=== PATIENT | female | born 1990 | race Caucasian/White ===

== ENCOUNTER 2017-10-06 07:41 | Inpatient (IN) | payer OTHER ==
[~2017-10-06] VITALS: Ht 170.2 cm; Wt 125.0 kg
[~2017-10-06 07:41] MED LIST: ALBIPROI INH; AMOX50SU PO; CEFA500ER PO; CETI10 PO; CODACE30 PO; CODGUAEL PO; CRUTCH4 USE; Carafate1 GM/10 ML PO; HYDACE5 PO; PHENA200 PO; Percocet 5-3251 EACH PO; Protonix40 MG PO; RXCODACET PO; RXHYDACE PO; RXPHEN200 PO; SPACER IH; SULTRIDS PO; TRAM50 PO; Valium5 MG PO; Zofran Odt4 MG SL
[2017-10-06] MEDS ORDERED: NITR100CA PO (08:19)
[2017-10-06] MEDS ORDERED: PRENATAL 19 TA1 EACH PO (08:19)
[2017-10-06] MEDS ORDERED: TUMS200 MG (08:19)
[2017-10-06 09:00] LABS: BASOPHILS ABSOLUTE AUTO 0.02 K/mm3 (0.00-0.23); BASOPHILS PERCENT AUTO 0 % (0-2); EOSINOPHILS ABSOLUTE AUTO 0.22 K/mm3 (0.00-0.68); EOSINOPHILS PERCENT AUTO 2 % (0-6); Hematocrit 37.9 % (33.0-51.0); IMMATURE GRAN ABSOLUTE AUTO 0.07 K/mm3 (0.00-0.10); IMMATURE GRAN PERCENT AUTO 1 % (0-1); LYMPHOCYTES ABSOLUTE AUTO 1.67 K/mm3 (0.84-5.20); LYMPHOCYTES PERCENT AUTO 16 % (21-46); MONOCYTES ABSOLUTE AUTO 0.63 K/mm3 (0.16-1.47); MONOCYTES PERCENT AUTO 6 % (4-13); Mean Corpuscular HGB 31.4 pg (26.0-34.0); Mean Corpuscular HGB Conc 34.3 g/dL (31.5-36.5); Mean Corpuscular Volume 92 fL (80-100); Mean Platelet Volume 11.9 fL (9.1-12.4); NEUTROPHILS ABSOLUTE AUTO 7.89 K/mm3 (1.96-9.15); NEUTROPHILS PERCENT AUTO 75 % (41-73); Platelet Count 137 K/mm3 (150-400); RDW Standard Deviation 46.7 fL (35.1-46.3); Red Blood Cell Count 4.14 M/mm3 (3.80-5.20)
[2017-10-06] MEDS ORDERED: ALBU90OI6 INH (09:19)
[2017-10-06 09:21] LABS: Alanine Aminotransfer (ALT/SGP 20 U/L (12-78); Albumin, Blood 2.6 g/dL (3.4-5.0); Albumin/Globulin Ratio 0.7 (0.8-1.8); Alk Phos 93 U/L (50-136); Anion Gap 12 mmol/L (6-16); Aspartate Aminotrans (AST/SGOT 12 U/L (12-37); Bilirubin, Total 0.2 mg/dL (0.1-1.0); Blood Urea Nitrogen 4 mg/dL (8-24); Bun/Creatinine Ratio 9.4 (12.0-20.0); CO2, Blood 21 mmol/L (21-32); Calcium, Blood 9.6 mg/dL (8.5-10.1); Chloride, Blood 108 mmol/L (98-108); Creatinine, Blood 0.43 mg/dL (0.40-1.00); Globulin, Blood 3.9 g/dL (2.2-4.0); Glomerular Filtration Rate >60 (60-); Glucose, Blood 90 mg/dL (70-99); Potassium, Blood 3.4 mmol/L (3.5-5.5); Sodium, Blood 141 mmol/L (136-145); Total Protein, Blood 6.5 g/dL (6.4-8.2)
[2017-10-08 06:12] LABS: BASOPHILS ABSOLUTE AUTO 0.02 K/mm3 (0.00-0.23); BASOPHILS PERCENT AUTO 0 % (0-2); EOSINOPHILS ABSOLUTE AUTO 0.15 K/mm3 (0.00-0.68); EOSINOPHILS PERCENT AUTO 1 % (0-6); Hematocrit 38.6 % (33.0-51.0); Hemoglobin 13.3 g/dL (11.5-16.0); IMMATURE GRAN ABSOLUTE AUTO 0.05 K/mm3 (0.00-0.10); IMMATURE GRAN PERCENT AUTO 0 % (0-1); LYMPHOCYTES ABSOLUTE AUTO 1.53 K/mm3 (0.84-5.20); LYMPHOCYTES PERCENT AUTO 13 % (21-46); MONOCYTES ABSOLUTE AUTO 0.62 K/mm3 (0.16-1.47); MONOCYTES PERCENT AUTO 5 % (4-13); Mean Corpuscular HGB Conc 34.5 g/dL (31.5-36.5); Mean Corpuscular Volume 93 fL (80-100); Mean Platelet Volume 11.6 fL (9.1-12.4); NEUTROPHILS ABSOLUTE AUTO 9.04 K/mm3 (1.96-9.15); NEUTROPHILS PERCENT AUTO 79 % (41-73); Platelet Count 123 K/mm3 (150-400); RDW Coefficient Variation 13.7 % (11.7-14.2); RDW Standard Deviation 46.5 fL (35.1-46.3); Red Blood Cell Count 4.16 M/mm3 (3.80-5.20); White Blood Cell Count 11.41 K/mm3 (4.00-11.30)
[2017-10-08 20:15] LABS: PCO2 Cord - Arterial 51.7 mmHg (40-50); PO2 Cord - Arterial 12.7 mmHg (16-20); pH Cord - Arterial 7.35 (7.28-7.35)
[2017-10-08 20:17] LABS: PCO2 Cord - Venous 46.7 mmHg (40-50); PO2 Cord - Venous 20.6 mmHg (28-32); pH Umbilical Cord - Venous 7.37 (7.26-7.35)
[2017-10-08 23:03] LABS: Mean Platelet Volume 11.6 fL (9.1-12.4); Platelet Count 122 K/mm3 (150-400)
[2017-10-09 06:08] LABS: Hematocrit 33.9 % (33.0-51.0); Hemoglobin 11.8 g/dL (11.5-16.0); Mean Corpuscular HGB 32.1 pg (26.0-34.0); Mean Corpuscular HGB Conc 34.8 g/dL (31.5-36.5); Mean Corpuscular Volume 92 fL (80-100); Mean Platelet Volume 11.6 fL (9.1-12.4); Platelet Count 131 K/mm3 (150-400); RDW Coefficient Variation 13.8 % (11.7-14.2); Red Blood Cell Count 3.68 M/mm3 (3.80-5.20); White Blood Cell Count 14.66 K/mm3 (4.00-11.30)
[2017-10-10] MEDS ORDERED: Percocet 5-3251 EACH PO (07:52)
[2017-10-10] MEDS ORDERED: IBUP800 PO (07:52)
== END 2017-10-10 13:45 | disposition home or self-care (01) | DRG 765 ==
LOC: BC 07:41
PROVIDERS: Nurse Practitioner Obstetrics & Gynecology; Obstetrics & Gynecology
PROC: 10D00Z1 Extraction of Products of Conception, Low, Open Approach (ICD-10-PCS; principal; 2017-10-08 19:30)
PROC: 3E0234Z Introduction of Serum, Toxoid and Vaccine into Muscle, Percutaneous Approach (ICD-10-PCS; 2017-10-10)
DX: O14.04 Mild to moderate pre-eclampsia, complicating childbirth (principal); Z68.41 Body mass index [BMI] 40.0-44.9, adult; Z37.0 Single live birth; Z3A.37 37 weeks gestation of pregnancy; O99.214 Obesity complicating childbirth; E66.01 Morbid (severe) obesity due to excess calories; J45.909 Unspecified asthma, uncomplicated; O99.52 Diseases of the respiratory system complicating childbirth; O99.62 Diseases of the digestive system complicating childbirth; K21.9 Gastro-esophageal reflux disease without esophagitis; Z23 Encounter for immunization; O32.4XX0 Maternal care for high head at term, not applicable or unspecified; O62.0 Primary inadequate contractions; O32.3XX0 Maternal care for face, brow and chin presentation, not applicable or unspecified; O69.2XX0 Labor and delivery complicated by other cord entanglement, with compression, not applicable or unspecified
CPT/HCPCS: 36415; 51702; 80053; 82803; 85025; 85027; 85049; 86850; 86900; 86901; 90707; J1100; J1885; J2210; J2270; J2370; J2405; J2590; J2765; J3010; J7120

== ENCOUNTER → 2017-10-19 | Outpatient (CLI) | END | disposition home or self-care (01) ==

== ENCOUNTER 2019-05-24 20:26 | Emergency (ER) | payer OTHER ==
[~2019-05-24] VITALS: Ht 170.2 cm; Wt 120.2 kg
[~2019-05-24 20:26] MED LIST changes: +ALBU90OI6 INH; +IBUP800 PO; +NITR100CA PO; +PRENATAL 19 TA1 EACH PO; +TUMS200 MG
[2019-05-24] MEDS ORDERED: Cleocin HCl300 MG PO (20:49)
== END 2019-05-24 20:55 | disposition home or self-care (01) ==
LOC: ER 20:26
DX: K04.01 Reversible pulpitis (principal); Z87.891 Personal history of nicotine dependence
CPT/HCPCS: 99282

== ENCOUNTER → 2020-10-09 | Outpatient (CLI) | payer OTHER ==
[~2020-10-09] MED LIST changes: +Cleocin HCl300 MG PO
[2020-10-11 16:09] LABS: HPV 16 Negative (Negative); HPV 18 Negative (Negative); HPV OTHER HR TYPES Negative (Negative)
== END | disposition home or self-care (01) ==
LOC: LAB 17:20 → LAB SHORT 17:20
PROVIDERS: Obstetrics & Gynecology
DX: Z01.419 Encounter for gynecological examination (general) (routine) without abnormal findings (principal)
CPT/HCPCS: 87624; G0123

== ENCOUNTER → 2021-04-08 | Outpatient (CLI) | payer OTHER | END | disposition home or self-care (01) | LOC: LAB SHORT 15:46 | DX: O09.93 Supervision of high risk pregnancy, unspecified, third trimester (principal) | CPT/HCPCS: 87081; 87150 ==

== ENCOUNTER 2021-04-22 05:43 | Inpatient (IN) | payer OTHER ==
[~2021-04-22] VITALS: Ht 170.2 cm; Wt 135.0 kg
[2021-04-22 06:14] LABS: BASOPHILS ABSOLUTE AUTO 0.02 K/mm3 (0.00-0.23); BASOPHILS PERCENT AUTO 0 % (0-2); EOSINOPHILS ABSOLUTE AUTO 0.12 K/mm3 (0.00-0.68); EOSINOPHILS PERCENT AUTO 1 % (0-6); Hematocrit 38.9 % (33.0-51.0); Hemoglobin 13.1 g/dL (11.5-16.0); IMMATURE GRAN ABSOLUTE AUTO 0.04 K/mm3 (0.00-0.10); IMMATURE GRAN PERCENT AUTO 0 % (0-1); LYMPHOCYTES ABSOLUTE AUTO 1.64 K/mm3 (0.84-5.20); LYMPHOCYTES PERCENT AUTO 18 % (21-46); MONOCYTES PERCENT AUTO 7 % (4-13); Mean Corpuscular HGB Conc 33.7 g/dL (31.5-36.5); Mean Corpuscular Volume 92 fL (80-100); NEUTROPHILS ABSOLUTE AUTO 6.88 K/mm3 (1.96-9.15); NEUTROPHILS PERCENT AUTO 74 % (41-73); Platelet Count 148 K/mm3 (150-400); RDW Coefficient Variation 14.3 % (11.7-14.2); RDW Standard Deviation 47.4 fL (35.1-46.3); Red Blood Cell Count 4.23 M/mm3 (3.80-5.20)
--- NOTE | 2021-04-22 08:31 | NUR ---
04/22/21 0831 Marycruz Hoffman VIABLE MALE BORN AT 0809. WT [id number], 8LB 4 OZ; LENGTH 20IN; HEAD 14IN; CHEST 13.5 IN; APGARS 9/10; CORD BLOOD SENT W/ A. LUIS ARMANDO BULLOCK
--- NOTE | 2021-04-22 14:37 | NUR ---
PATIENT REPORTS SHE IS HAVING SIGNIFICANT INCISIONAL PAIN. SHE REPORTS THAT IT IS CONSTANT AND SOMEWHAT RELIEVED WITH PAIN MEDICATION. WE TRIED REPOSITIONING HER WITH NO RELIEF. RAJAN AND TORADOL GIVEN.
--- NOTE | 2021-04-22 15:23 | NUR ---
PATIENT REPORTS HER PAIN IS 5/10. SHE WAS GIVEN A HEATING PAD FOR HER INCISIONAL SITE.
--- NOTE | 2021-04-22 16:41 | NUR ---
PATIENT GIVEN MORPHINE FOR BREAKTHROUGH PAIN. SHE REPORTS HER PAIN IS 5/10 NOW. SHE WAS READJUSTED IN BED AND HER BINDER WAS FIXED TO BE AT THE APPROPRIATE LEVEL. THE PATIENT BROUGHT LAVENDER AND EUCALYPTUS ESSENTIAL OILS AND A DIFFUSER. SHE REPORTS THAT THIS HELPS HER AT HOME. HER IS SETTING THAT UP.
[2021-04-23 06:06] LABS: BASOPHILS ABSOLUTE AUTO 0.02 K/mm3 (0.00-0.23); BASOPHILS PERCENT AUTO 0 % (0-2); EOSINOPHILS ABSOLUTE AUTO 0.15 K/mm3 (0.00-0.68); EOSINOPHILS PERCENT AUTO 2 % (0-6); Hematocrit 33.7 % (33.0-51.0); Hemoglobin 11.1 g/dL (11.5-16.0); IMMATURE GRAN ABSOLUTE AUTO 0.05 K/mm3 (0.00-0.10); IMMATURE GRAN PERCENT AUTO 1 % (0-1); LYMPHOCYTES ABSOLUTE AUTO 1.61 K/mm3 (0.84-5.20); LYMPHOCYTES PERCENT AUTO 19 % (21-46); MONOCYTES ABSOLUTE AUTO 0.49 K/mm3 (0.16-1.47); MONOCYTES PERCENT AUTO 6 % (4-13); Mean Corpuscular HGB 30.7 pg (26.0-34.0); Mean Corpuscular HGB Conc 32.9 g/dL (31.5-36.5); Mean Corpuscular Volume 93 fL (80-100); Mean Platelet Volume 11.3 fL (9.1-12.4); NEUTROPHILS PERCENT AUTO 73 % (41-73); Platelet Count 106 K/mm3 (150-400); RDW Coefficient Variation 14.6 % (11.7-14.2); RDW Standard Deviation 49.3 fL (35.1-46.3); Red Blood Cell Count 3.61 M/mm3 (3.80-5.20); White Blood Cell Count 8.72 K/mm3 (4.00-11.30)
[2021-04-24] MEDS ORDERED: OXAYDO5 M1 PO (12:37)
[2021-04-24] MEDS ORDERED: IBUP800 PO (12:37)
--- NOTE | 2021-04-24 15:30 | NUR ---
PATIENT GOT UP TO SHOWER WITH ASSISTANCE FROM HER SO. SHE ALSO APPLIED MAKEUP AND AMBULATED DOWN TWO HALLWAYS AND BACK WITH HER SO. SHE IS REQUESTING TO GO HOME AND REPORTS THAT THE PAIN AT HER INCISION FEELS LIKE IT IS GETTING BETTER. HER LEFT TO GET HER PRESCRIPTIONS FILLED AT THEIR PHARMACY SO THAT THEY WILL HAVE THEM WHEN SHE GOES HOME.
--- NOTE | 2021-04-24 16:53 | NUR ---
PATIENT IS ACTIVELY PACKING HER BELONGINGS WITHOUT ASSISTANCE AND GETTING READY TO GO HOME. SHE REPORTS THAT THE PAIN IS SOMEWHAT BETTER AND THAT SHE IS READY TO TAKE HER HOME TO HER DAUGHTER.
--- NOTE | 2021-04-24 18:09 | NUR ---
PT RECEIVED ONE MORE DOSE OF RAJAN PRIOR TO D/C. SHE REPORTS THAT HER PAIN IS SOMEWHAT BETTER BUT THEY HAVE A 30-[address] HOME. PT WAS GIVEN D/C INSTRUCTIONS AND SHE VOICED UNDERSTANDING. SHE WAS GIVEN PRESCRIPTIONS, WHICH HER DROPPED OFF AT THE PHARMACY SO THEY CAN FIELD MECHANIC ON THE WAY HOME. PT WILL RTC ON THURSDAY FOR PP F/U. SHE WAS ENCOURAGED TO CALL DR. TOPETE IF HER PAIN IS POORLY CONTROLLED AT HOME. WE DISCUSSED ALTERNATING TYLENOL AND IBUPROFEN AT HOME PRIOR TO TAKING RAJAN, TO USE IT MORE A LAST RESORT. LUIS ARMANDO CURRAN HAD A DISCUSSION WITH BOTH THE PT AND HER SO IN REGARD TO SPACING OUT RAJAN WHEN SHE GETS HOME. THE PT REPORTS SHE FEELS A LOT MORE COMFORTABLE WITH GOING HOME. SHE WAS D/C HOME WITH HER SO AND .
== END 2021-04-24 18:55 | disposition home or self-care (01) | DRG 788 ==
LOC: BC 05:43
PROVIDERS: ADMIT Obstetrics & Gynecology
PROC: 10D00Z1 Extraction of Products of Conception, Low, Open Approach (ICD-10-PCS; principal; 2021-04-22 07:30)
DX: O34.211 Maternal care for low transverse scar from previous cesarean delivery (principal); Z37.0 Single live birth; Z3A.39 39 weeks gestation of pregnancy; O99.214 Obesity complicating childbirth; E66.01 Morbid (severe) obesity due to excess calories
CPT/HCPCS: 36415; 85025; 86850; 86900; 86901; A9270; J0690; J1885; J2270; J2370; J2405; J2590; J2704; J2765; J3010; J7120

== ENCOUNTER → 2021-06-21 | Outpatient (CLI) | payer OTHER ==
[~2021-06-21] MED LIST changes: +OXAYDO5 M1 PO
[2021-06-21 10:31] LABS: BASOPHILS ABSOLUTE AUTO 0.03 K/mm3 (0.00-0.23); BASOPHILS PERCENT AUTO 0 % (0-2); EOSINOPHILS ABSOLUTE AUTO 0.19 K/mm3 (0.00-0.68); EOSINOPHILS PERCENT AUTO 3 % (0-6); Hematocrit 41.4 % (33.0-51.0); Hemoglobin 13.9 g/dL (11.5-16.0); IMMATURE GRAN ABSOLUTE AUTO 0.03 K/mm3 (0.00-0.10); IMMATURE GRAN PERCENT AUTO 0 % (0-1); LYMPHOCYTES ABSOLUTE AUTO 1.74 K/mm3 (0.84-5.20); LYMPHOCYTES PERCENT AUTO 23 % (21-46); MONOCYTES ABSOLUTE AUTO 0.42 K/mm3 (0.16-1.47); MONOCYTES PERCENT AUTO 6 % (4-13); Mean Corpuscular HGB 29.9 pg (26.0-34.0); Mean Corpuscular HGB Conc 33.6 g/dL (31.5-36.5); Mean Corpuscular Volume 89 fL (80-100); Mean Platelet Volume 10.8 fL (9.1-12.4); NEUTROPHILS ABSOLUTE AUTO 5.03 K/mm3 (1.96-9.15); NEUTROPHILS PERCENT AUTO 68 % (41-73); Platelet Count 201 K/mm3 (150-400); RDW Coefficient Variation 13.4 % (11.7-14.2); RDW Standard Deviation 43.6 fL (35.1-46.3); Red Blood Cell Count 4.65 M/mm3 (3.80-5.20); White Blood Cell Count 7.44 K/mm3 (4.00-11.30)
[2021-06-21 10:48] LABS: Alanine Aminotransfer (ALT/SGP 136 U/L (12-78); Albumin, Blood 3.8 g/dL (3.4-5.0); Albumin/Globulin Ratio 1.1 (0.8-1.8); Alk Phos 58 U/L (40-126); Anion Gap 10 mmol/L (6-16); Aspartate Aminotrans (AST/SGOT 45 U/L (12-37); Bilirubin, Total 0.5 mg/dL (0.1-1.0); Blood Urea Nitrogen 15 mg/dL (8-24); Bun/Creatinine Ratio 20.5 (12.0-20.0); CO2, Blood 25 mmol/L (21-32); Calcium, Blood 9.3 mg/dL (8.5-10.1); Chloride, Blood 103 mmol/L (98-108); Creatinine, Blood 0.73 mg/dL (0.40-1.00); Globulin, Blood 3.6 g/dL (2.2-4.0); Glomerular Filtration Rate >60 (60-); Glucose, Blood 104 mg/dL (70-99); Potassium, Blood 3.8 mmol/L (3.5-5.5); Sodium, Blood 138 mmol/L (136-145); Thyroid Stimulating Hormone 1.623 uIU/mL (0.360-4.800); Total Protein, Blood 7.4 g/dL (6.4-8.2); Troponin I <0.017 ng/mL (0.000-0.040)
== END ==
LOC: LAB SHORT 10:25 → LAB 10:25
PROVIDERS: Physician Assistant
DX: R07.9 Chest pain, unspecified (principal); R53.83 Other fatigue
CPT/HCPCS: 80053; 83690; 84443; 84484; 85025; 85379

== ENCOUNTER 2022-08-04 02:57 | Observation (INO) | payer BC, OTHER ==
[~2022-08-04] VITALS: Ht 167.6 cm; Wt 124.7 kg
[2022-08-04 03:48] LABS: Source, Urine Clean Catch
[2022-08-04 03:51] LABS: Bilirubin, Urine Neg (Neg); Blood, Urine Neg (Neg); Glucose Qualitative, Urine Neg (Neg); Ketones, Urine Neg (Neg); Leukocyte Esterase, Urine Neg (Neg); Nitrite, Urine Neg (Neg); Protein, Urine Neg (Neg); Specific Gravity, Urine 1.025 (1.003-1.022); Urobilinogen, Urine NORM (Normal)
[2022-08-04 03:53] LABS: BASOPHILS ABSOLUTE AUTO 0.03 K/mm3 (0.00-0.23); BASOPHILS PERCENT AUTO 0 % (0-2); EOSINOPHILS ABSOLUTE AUTO 0.13 K/mm3 (0.00-0.68); EOSINOPHILS PERCENT AUTO 1 % (0-6); Hematocrit 42.3 % (33.0-51.0); Hemoglobin 14.4 g/dL (11.5-16.0); IMMATURE GRAN ABSOLUTE AUTO 0.04 K/mm3 (0.00-0.10); IMMATURE GRAN PERCENT AUTO 0 % (0-1); LYMPHOCYTES ABSOLUTE AUTO 1.79 K/mm3 (0.84-5.20); LYMPHOCYTES PERCENT AUTO 17 % (21-46); MONOCYTES ABSOLUTE AUTO 0.57 K/mm3 (0.16-1.47); MONOCYTES PERCENT AUTO 5 % (4-13); Mean Corpuscular HGB 30.1 pg (26.0-34.0); Mean Corpuscular Volume 88 fL (80-100); NEUTROPHILS ABSOLUTE AUTO 8.29 K/mm3 (1.96-9.15); NEUTROPHILS PERCENT AUTO 76 % (41-73); Platelet Count 226 K/mm3 (150-400); RDW Coefficient Variation 12.4 % (11.7-14.2); RDW Standard Deviation 40.3 fL (35.1-46.3); Red Blood Cell Count 4.79 M/mm3 (3.80-5.20); White Blood Cell Count 10.85 K/mm3 (4.00-11.30)
[2022-08-04 04:02] LABS: Appearance, Urine Clear (Clear); Color, Urine Yellow (P-Yellow)
[2022-08-04 04:12] LABS: Alanine Aminotransfer (ALT/SGP 22 U/L (12-78); Albumin, Blood 3.7 g/dL (3.4-5.0); Alk Phos 56 U/L (50-136); Anion Gap 5 mmol/L (6-16); Aspartate Aminotrans (AST/SGOT 13 U/L (12-37); Bilirubin, Direct <0.1 mg/dL (0.0-0.3); Bilirubin, Total 0.2 mg/dL (0.1-1.0); Blood Urea Nitrogen 11 mg/dL (8-24); Bun/Creatinine Ratio 19.2 (12.0-20.0); CO2, Blood 26 mmol/L (21-32); Calcium, Blood 8.8 mg/dL (8.5-10.1); Chloride, Blood 106 mmol/L (98-108); Creatinine, Blood 0.57 mg/dL (0.40-1.00); Globulin, Blood 3.8 g/dL (2.2-4.0); Glomerular Filtration Rate 126 (60-); Glucose, Blood 141 mg/dL (70-99); Potassium, Blood 3.7 mmol/L (3.5-5.5); Sodium, Blood 137 mmol/L (136-145); Total Protein, Blood 7.5 g/dL (6.4-8.2)
--- NOTE | 2022-08-04 12:10 | NUR ---
PT TO DAY SURGERY VIA GERMÁN
--- NOTE | 2022-08-04 12:12 | NUR ---
PT BROUGHT TO DAY SURGERY FOR PROCEDURE. PT BELONGINGS LEFT IN ROOM FOR SAFEKEEPING.
--- NOTE | 2022-08-04 18:45 | NUR ---
POST OP ARRIVES w/ ANXIETY & C/O HIGH PAIN. AGREES TO STAND & TRANSFER TO HOSPITAL BED. DOES WELL w/ TRANSFER. ABD SOFT w/ 5 LAP SITES TRANSVERSE MID [place]LLY. AGREES TO SMALL SIP OF WATER. 2L NC. VSS.
--- NOTE | 2022-08-05 06:33 | NUR ---
POD 1 S/P LAP SAI. PT VSS T/O NIGHT. INCISIONS CDI. PT STRUGGLED W/PAIN MGMT R/T "GAS PAINS" PAIN MGD PER EMAR, KPAD AND ABD BINDER GIVEN FOR COMFORT. PT MAURICIO SMALL AMT REG PO BUT HAD 1 EPISODE OF EMESIS, MEDICATED W/ZOFRAN W/REP RELIEF. BT REMAIN HYPO, PT REP NO GAS YET. PT LESS ANXIOUS THIS AM, IS AMB IN HALLS, IS UP WALKING FREQ IN ROOM, MAURICIO WELL. IVF AND ABX CONT PER ORDERS.
[2022-08-05] MEDS ORDERED: OXYC5 PO (08:01)
--- NOTE | 2022-08-05 08:30 | NUR ---
DISCHARGE BROUGHT IN DC INSTRUCTIONS; PT REQUESTS TO WAIT UNTIL ARRIVES TO DISCUSS. STATES HE WILL BE HERE AROUND 9:30/10.
--- NOTE | 2022-08-05 11:55 | NUR ---
DISCHARGE PT HAS DONE VERY WELL TODAY. UP IND IN ROOM & HALLWAYS. EATING & DRINKING WELL. PASSING SMALL AMOUNT OF GAS. SCRIPT GIVEN & ESCORTED OUT VIA WC.
== END 2022-08-05 11:55 | disposition home or self-care (01) ==
LOC: ER 02:57 → SURS 02:58
PROVIDERS: Student in an Organized Health Care Education/Training Program; Surgery; ADMIT Surgery
PROC: 0FT44ZZ Resection of Gallbladder, Percutaneous Endoscopic Approach (ICD-10-PCS; principal; 2022-08-04 12:30)
DX: K80.12 Calculus of gallbladder with acute and chronic cholecystitis without obstruction (principal); E66.01 Morbid (severe) obesity due to excess calories; Z68.41 Body mass index [BMI] 40.0-44.9, adult; Z88.5 Allergy status to narcotic agent; Z88.0 Allergy status to penicillin; Z91.018 Allergy to other foods; Z87.891 Personal history of nicotine dependence
CPT/HCPCS: 36415; 76705; 80053; 81003; 81025; 82248; 83690; 85025; 88304; 96361; 96365; 96366; 96367; 96375; 96376; 99285-25; A9270; G0378; J0690; J0694; J0696; J1100; J1170; J1885; J2250; J2370; J2405; J2704; J2765; J2795; J3010; J3480; J7030; J7120

== ENCOUNTER 2025-03-04 02:08 | Emergency (ER) | payer BC, OTHER ==
[~2025-03-04] VITALS: Ht 170.2 cm; Wt 131.5 kg
[~2025-03-04 02:08] MED LIST changes: +OXYC5 PO
[2025-03-04 03:03] LABS: BASOPHILS ABSOLUTE AUTO 0.02 K/mm3 (0.00-0.23); BASOPHILS PERCENT AUTO 0 % (0-2); EOSINOPHILS ABSOLUTE AUTO 0.28 K/mm3 (0.00-0.68); EOSINOPHILS PERCENT AUTO 3 % (0-6); Hematocrit 42.0 % (33.0-51.0); Hemoglobin 14.1 g/dL (11.5-16.0); IMMATURE GRAN ABSOLUTE AUTO 0.03 K/mm3 (0.00-0.10); IMMATURE GRAN PERCENT AUTO 0 % (0-1); LYMPHOCYTES ABSOLUTE AUTO 2.15 K/mm3 (0.84-5.20); LYMPHOCYTES PERCENT AUTO 24 % (21-46); MONOCYTES ABSOLUTE AUTO 0.49 K/mm3 (0.16-1.47); MONOCYTES PERCENT AUTO 5 % (4-13); Mean Corpuscular HGB Conc 33.6 g/dL (31.5-36.5); Mean Corpuscular Volume 91 fL (80-100); NEUTROPHILS ABSOLUTE AUTO 6.17 K/mm3 (1.96-9.15); NEUTROPHILS PERCENT AUTO 68 % (41-73); NRBC ABSOLUTE 0.00 K/mm3 (0.00-0.02); NRBC Auto 0.0 /100 WBC (0.0-0.2); Platelet Count 214 K/mm3 (150-400); RDW Coefficient Variation 12.4 % (11.7-14.2); RDW Standard Deviation 41.0 fL (35.1-46.3)
[2025-03-04 03:20] LABS: Alanine Aminotransfer (ALT/SGP 27.0 U/L (12-78); Albumin, Blood 3.7 g/dL (3.4-5.0); Albumin/Globulin Ratio 1.0 (0.8-1.8); Anion Gap 7.0 mmol/L (3-11); Aspartate Aminotrans (AST/SGOT 14.0 U/L (12-37); Bilirubin, Total 0.4 mg/dL (0.1-1.0); Blood Urea Nitrogen 15.0 mg/dL (8-24); CO2, Blood 27.0 mmol/L (21-32); Calcium, Blood 8.9 mg/dL (8.5-10.1); Chloride, Blood 107.0 mmol/L (98-108); Creatinine, Blood 0.65 mg/dL (0.40-1.00); Globulin, Blood 3.8 g/dL (2.2-4.0); Glucose, Blood 122.0 mg/dL (70-99); Potassium, Blood 3.5 mmol/L (3.5-5.5); Sodium, Blood 137.0 mmol/L (136-145); Total Protein, Blood 7.5 g/dL (6.4-8.2)
[2025-03-04 05:07] VITALS: BP 123/79
== END 2025-03-04 06:16 | disposition home or self-care (01) ==
LOC: ER 02:08
PROVIDERS: Emergency Medicine
DX: R07.2 Precordial pain (principal); Z88.1 Allergy status to other antibiotic agents; Z88.5 Allergy status to narcotic agent; Z87.891 Personal history of nicotine dependence; Z59.89 Other problems related to housing and economic circumstances
CPT/HCPCS: 71046; 80053; 83690; 84484; 85025; 93005; 93010; 99285-25